=== PATIENT | male | born 1960 | race American Indian/Alaskan Native ===

== ENCOUNTER 2018-08-14 16:30 | Inpatient (IN) | payer MEDICAID, OTHER ==
[2018-08-14 16:30] VITALS: BMI 32.6
[2018-08-14 16:52] VITALS: O2SAT 100
--- NOTE | 2018-08-14 17:25 | C.PDOC ---
History Of Present Illness 57 y/o homeless male presents to the ER from [facility], requesting detox from heroin. Patient states that he snorts heroin and his last use was 2 days ago.Patient reports that he has nausea, body sweats, and body aches. He is "dope sick." He notes that he had suicidal ideation 2 days ago but he did not have plan. He states that he has hx of bipolar disorder and he is intermittently compliant with his medications.Denies having fever,chills, headache, and vomiting. Time Seen by Provider: 08/14/18 16:56 Chief Complaint (Nursing): Substance Abuse History Per: Patient History/Exam Limitations: no limitations Onset/Duration Of Symptoms: Days Current Symptoms Are (Timing): Still Present Severity: Moderate Past Medical History Reviewed: Historical Data, Nursing Documentation, Vital Signs Vital Signs: Last Vital Signs Temp 98.3 F 08/14/18 16:51 Pulse 94 H 08/14/18 16:51 Resp 19 08/14/18 16:51 BP 119/82 08/14/18 16:51 Pulse Ox 100 08/14/18 16:51 Primary Care Provider: FAMILY PROVIDER,NO - Medical History PMH: Asthma, Bipolar Disorder, Depression, HTN (sometimes takes medication), Schizophrenia Denies: Diabetes, Hepatitis, HIV, Chronic Kidney Disease, Seizures, Sexually Transmitted Disease Surgical History: Hernia Repair - [facility] Procedures EXCISION OF ESOPHAGUS, ENDO, DIAGN (08/03/18) EXCISION OF STOMACH, ENDO, DIAGN (08/03/18) MEDICATION MANAGEMENT (08/04/18) SUTURE OF LIP LACERATION (01/03/06) Family History: States: No Known Family Hx - Social History Hx Alcohol Use: No Hx Substance Use: Yes - Immunization History Hx Tetanus Toxoid Vaccination: Yes Hx Influenza Vaccination: Yes Hx Pneumococcal Vaccination: Yes Review Of Systems Except As Marked, All Systems Reviewed And Found Negative. Constitutional: Positive for: Sweats, Malaise. Negative for: Fever, Chills Gastrointestinal: Positive for: Nausea. Negative for: Vomiting, Abdominal Pain Neurological: Negative for: Headache Physical Exam - Physical Exam Appears: No Acute Distress Skin: Normal Color, Warm, Dry Head: Atraumatic, Normacephalic Eye(s): bilateral: Normal Inspection Nose: Normal Oral Mucosa: Moist Neck: Supple Chest: Symmetrical Cardiovascular: Rhythm Regular Respiratory: Normal Breath Sounds, No Rales, No Rhonchi, No Wheezing Gastrointestinal/Abdominal: Normal Exam, Soft, No Tenderness, No Guarding, No Rebound Extremity: Normal ROM Neurological/Psych: Oriented x3, Normal Speech, Other (pt is slow to respond) Gait: Steady ED Course And Treatment - Laboratory Results Result Diagrams: 08/14/18 17:47 08/14/18 17:47 O2 Sat by Pulse Oximetry: 100 (RA) Pulse Ox Interpretation: Normal Medical Decision Making Medical Decision Making: Plan: --Labs --UA --CRISIS Disposition - Disposition Disposition Time: 18:36 Condition: GUARDED Forms: [employer] ([place]rian) - Clinical Impression Clinical Impression: Drug dependence, Bipolar 1 disorder, depressed - Scribe Statement The provider has reviewed the documentation as recorded by the Scribe Sterling López Provider Attestation: All medical record entries made by the Scribe were at my direction and personal ly dictated by me. I have reviewed the chart and agree that the record accurately reflects my personal performance of the history, physical exam, medical decision making, and the department course for this patient. I have also personally directed, reviewed, and agree with the discharge instructions and disposition. Physician Patient Turnover Patient Signed Over To: Rohan Sy Handoff Comments: pending UA/UTox and final dispo by crisis.
[2018-08-14 17:51] LABS: BASO % 0.2 % (0.0-2.0); EOS # 0.3 K/uL (0.0-0.7); EOS % 2.8 % (0.0-4.0); HEMOGLOBIN 9.7 g/dL (12.0-18.0); LYMPH # 2.2 K/uL (1.0-4.3); LYMPH % 21.1 % (20.0-40.0); MEAN CORPUSCULAR HEMOGLOBIN 29.6 pg (27.0-31.0); MEAN CORPUSCULAR HGB CONC 34.8 g/dL (33.0-37.0); MEAN PLATELET VOLUME 7.8 fL (7.2-11.7); MONO % 9.1 % (0.0-10.0); NEUT % 66.8 % (50.0-75.0); NRBC % 0.1 % (0.0-2.0); RBC 3.29 Mil/uL (4.40-5.90); RED CELL DISTRIBUTION WIDTH 15.3 % (11.5-14.5); WHITE BLOOD COUNT 10.5 K/uL (4.8-10.8)
[2018-08-14 18:05] LABS: ALB/GLOB RATIO 1.2 (1.0-2.1); ALBUMIN 3.8 g/dL (3.5-5.0); ALT/SGPT 24 U/L (21-72); AST/SGOT 18 U/L (17-59); BLOOD UREA NITROGEN 21 mg/dL (9-20); CALCIUM 9.3 mg/dl (8.6-10.4); GFR NON-AFRICAN AMERICAN 49
[2018-08-14 18:46] LABS: URINE BILIRUBIN NEGATIVE (NEGATIVE); URINE BLOOD NEGATIVE (NEGATIVE); URINE CLARITY Clear (Clear); URINE COLOR Straw (YELLOW); URINE GLUCOSE (UA) NORMAL (Normal); URINE LEUKOCYTE ESTERASE NEG Leu/uL (Negative); URINE PROTEIN NEGATIVE (NEGATIVE); URINE UROBILINOGEN NORMAL mg/dL (0.2-1.0)
[2018-08-14 19:08] LABS: BARBITURATES, UR NEGATIVE (NEGATIVE); BENZODIAZEPINES, UR NEGATIVE (NEGATIVE); OPIATES, UR NEGATIVE (NEGATIVE); PHENCYCLIDINE, UR NEGATIVE (NEGATIVE)
--- NOTE | 2018-08-14 21:49 | PCM.BM ---
<Ceci Leija - Last Filed: 08/14/18 21:47> Treatment Plan Problems - Problems identified on initial assessmt depression Date Initiated: 08/14/18 Time Initiated: 21:48 Assessment reference: NA Treatment assets and liabiliti Patient Assests: cooperative, motivated, negotiates basic needs, cognitively intact Patient Liabilities: poor support system - Milieu Protocol Maintain good personal hygiene: daily Encourage regular showers, daily Remind patient to perform daily oral care, daily Assist patient to perform ADL's Conduct patient checks and document Observation sheet: Q15 minutes Maintain personal safety: every shift Educate patient to report safety concerns to staff, every shift Monitor environment for contraband/sharps Medication safety: Monitor for expected outcome, potential side effects: every shift, Assess barriers to learning: every shift, Assess readiness for medication education: every shift <Daniela Brown - Last Filed: 08/15/18 14:35> Family Contact Family involvement: Patient does not wish Family/SO involvement Family contact: Patient declines to allow family contact at present - Goals for Treatment Patient goals for treatment: " I want to go to rehab." Discharge/Continuing Care - Education Needs Education Needs: Patient Medication, Patient Diagnosis/Disease Process, Patient Coping Skills, Patient Placement options, Patient Community resources - Discharge Discharge Criteria: Free of Suicidal thoughts, Normal sleep pattern, Ability to care for self, No longer exhibiting s/s of withdrawal, Reduction of target symptoms Discharge to:: Substance Abuse Rehab - Treatment Team Participation Discussed with Family/SO: No Was Patient/Family/SO present at Treatment Team Meeting: Yes <Darcie Gallagher - Last Filed: 08/15/18 20:03> - Diagnosis (1) Bipolar 1 disorder, depressed Status: Acute Interventions: 08/15/18 20:03 * Assess/adjust medications daily and /or as needed * See patient on an individual basis 7x/week to assess level of manic behaviors and stability * Discuss risks, benefits, side effects and alternatives of medications *
--- NOTE | 2018-08-15 09:35 | PCM.PSYCH ---
Initial Psychiatric Evaluation - Initial Psychiatric Evaluation Type of Admission: Voluntary Legal Status: Capacity Chief Complaint (in patient's own words): My mood has been crazy History of Present Illness and Precipitating Events: Patient is a 57 year old single male, unemployed and living in a half-way, who presents to the ED with complaints of depressed mood. Patient has a self reported past psych history of bipolar disorder and presents with complaints of having "crazy mood for the past couple of weeks". He reports that he has been feeling down, hopeless, sleeping excessively, and admits to SI with thoughts of overdosing on drugs; denies plan or prior attempts. He reports he uses heroin(intranasal), 3 bags daily with last use several days ago. Patient reports sweats, chills, abdominal cramps, nausea, vomiting, diarrhea; U DS negative on admission. Patient reports he was previously living with his sister, but left because she kept asking him to contribute to golf starter and ranger which he was unwilling to do, and is currently living in a half-way. Patient admits to previous psych admissions for similar complaints and reports improvement of symptoms with medications, however fails to follow up outpatient and remains non-compliant with meds as instructed. Patient denies recent episode of increased energy, insomnia, racing thoughts. Patient is a poor historian: per records, pt has pmhx of HTN, asthma, and was recently admitted to inpatient psych at [facility] with similar complaints, psychotic during stay with disorganized thoughts and behaviors including smearing feces on nevarez. Transferred to medical floor for evaluation of GI bleed. PsychHx: Bipolar d/o PMHx: denies FamHx: denies Current Medications: Active Medications Generic Name Dose Route Start Last Admin Trade Name Freq PRN Reason Stop Dose Admin Hydroxyzine HCl 25 mg 08/14/18 22:39 Atarax PO Q6 PRN Agitation Trazodone HCl 50 mg 08/14/18 22:40 Desyrel PO HS PRN Insomnia Past Psychiatric History - Past Psychiatric History Previous Treatment History: Inpatient Pertinent Medical Hx (Current Medical&Sleep Prob, Allergies): Allergies Allergy/AdvReac Type Severity Reaction Status Date / Time FISH Allergy ANAPHYLAXIS Verified 08/14/18 16:51 Albuterol/Ipratropium [Duoneb 3 mg/0.5 mg (3 ml) UD] 3 ml IH [id number] neb 08/04/18 LORazepam [Ativan] 1 mg PO TID PRN tab 08/04/18 Metoclopramide [Reglan] 10 mg PO 0600,1130,1630,2200 tab 08/04/18 Nicotine 14 mg/24 hr [Nicoderm CQ] 1 patch TD DAILY patch 08/04/18 Ondansetron ODT [Zofran ODT] 4 mg PO Q8H PRN odt 08/04/18 Pantoprazole [Protonix EC Tab] 40 mg PO 0600,1600 ect 08/04/18 Sucralfate [Carafate Oral Susp] 1 gm PO ACHS udc 08/04/18 risperiDONE [RisperDAL Tab] 0.25 mg PO HS tab 08/04/18 Azithromycin [Z-Tyler] 250 mg PO DAILY #6 tab 08/11/18 Review of Systems - Constitutional Constitutional: Chills, Sweats - Gastrointestinal Gastrointestinal: Cramping, Diarrhea, Nausea, Vomiting - Psychiatric Psychiatric: Anhedonia, Depression, Hopelessness, Mood Swings, Suicidal Ideation. absent: Auditory Hallucinations, Change in Appetite, Visual Hallucinations Mental Status Examination - Personal Presentation Personal Presentation: Looks stated age - Affect Affect: Constricted - Motor Activity Motor Activity: Calm - Reliability in Providing Information Reliability in Providing Information: Poor, due to cognitve impairment - Speech Speech: Organized - Mood Mood: Depressed - Formal Thought Process Formal Thought Process: No Impairment - Cognitive Functions Orientation: Person, Place, Situation, Time Sensorium: Alert Attention/Concentration: Attentive Estimate of Intelligence: Average Judgement: Imparied, as evidence by: Lack of insight into illness Memory: Remote impaired as evidenced by: Inability to recall sig life events - Risk Risk: Suicidal, Diminished functioning - Strength & Assets Inventory Strength & Assets Inventory: Cooperative - Limitations Limitations: Living alone DSM 5 DX - DSM 5 DSM 5 Diagnosis: Bipolar disorder with psychotic features Opioid use disorder, moderate - Recommended/Plan of Treatment Treatment Recommendations and Plan of Treatment: Consider restarting Depakote/Risperdal from previous admission No evidence of withdrawals Atarax, trazodone HS PRN Attend groups and activities Individual therapy daily Psycho-education and support daily Encourage compliance with medications and aftercare Teach healthy lifestyle(diet, exercise, meditation...) Smoking cessation Discussed with Dr. Elliott Shook, PGY-1 32 min - Smoking Cessation Smoking Cessation Initiated: Yes
[2018-08-15] MEDS: Albuterol-Ipratrop 3 mg / 0.5 (3 ml) UD IH SCH (20:52)
[2018-08-15] MEDS ORDERED: traZODone 25 mg Tab PO SCH ×2 (22:00)
[2018-08-15] MEDS: Sucralfate 1 gm/10 ml Oral Susp UD PO SCH (22:50)
[2018-08-16] MEDS: Albuterol-Ipratrop 3 mg / 0.5 (3 ml) UD IH SCH ×5 (02:10→21:01)
[2018-08-16] MEDS: Pantoprazole 40 mg EC Tab PO SCH ×2 (06:24→16:36)
[2018-08-16 06:53] VITALS: RESP 18
[2018-08-16] MEDS: Sucralfate 1 gm/10 ml Oral Susp UD PO SCH ×4 (07:59→22:10)
--- NOTE | 2018-08-16 10:00 | PCM.PYCHPN ---
Psychiatric Progress Note - Psychiatric Progress Note Patient seen today, length of contact: 15 min Patient Chief Complaint: I am hearing voices Problems Identified/Issues Discussed: Patient was seen and evaluated, chart reviewed and discussed with staff. He remained disorganized and preoccupied. He appears to have loose associations and he was found responding to internal stimuli. As per the staff he remained isolative and withdrawn and confined to his room. He reports depressed mood, irritability and agitation. He is taking medication but denies any side effects. he needs to stay longer for the stabilization of the symptoms. Supportive therapy was provided Medication Change: Yes Medical Record Reviewed: Yes Mental Status Examination - Cognitive Function Orientation: Person, Place, Situation, Time Memory: Intact Attention: WNL Concentration: Poor Association: Loose Fund of Knowledge: WNL - Mood Mood: Depressed, Anxious - Affect Affect: Constricted - Formal Thought Process Formal Thought Process: Delusions, Paranoia, Loosening of associations - Suicidal Ideation Suicidal Ideation: No - Homicidal Ideation Homicidal Ideation: No Goal/Treatment Plan - Goal/Treatment Plan Need for Continued Stay: Remain at risks for inpatient hospitalization Progress Toward Problem(s) and Goals/Treatment Plan: Bipolar disorder with psychotic features Opioid use disorder, moderate Carbamazepine for mood Fluphenazine for psychosis Trazodone for insomnia No evidence of withdrawals Hydroxyzine for anxiety Attend groups and activities Individual therapy daily Psycho-education and support daily Encourage compliance with medications and aftercare Teach healthy lifestyle (diet, exercise, meditation...) Smoking cessation
[2018-08-17] MEDS: Albuterol-Ipratrop 3 mg / 0.5 (3 ml) UD IH SCH ×4 (02:06→20:49)
[2018-08-17] MEDS: Pantoprazole 40 mg EC Tab PO SCH ×2 (06:13→16:14)
[2018-08-17] MEDS: Sucralfate 1 gm/10 ml Oral Susp UD PO SCH ×4 (08:29→22:13)
[2018-08-18] MEDS: Albuterol-Ipratrop 3 mg / 0.5 (3 ml) UD IH SCH ×4 (01:06→20:10)
[2018-08-18] MEDS: Pantoprazole 40 mg EC Tab PO SCH ×2 (06:22→16:53)
[2018-08-18] MEDS: Sucralfate 1 gm/10 ml Oral Susp UD PO SCH ×4 (08:12→21:59)
--- NOTE | 2018-08-18 15:38 | PCM.PYCHPN ---
Psychiatric Progress Note - Psychiatric Progress Note Patient seen today, length of contact: 15 min Patient Chief Complaint: I am hearing voices Problems Identified/Issues Discussed: Patient was seen and evaluated, chart reviewed and discussed with staff. As per the staff he remained isolative and withdrawn and confined to his room. He remained disorganized and preoccupied. He appears to have loose associations and he was found responding to internal stimuli. He reports irritability and agitation. He is taking medication but denies any side effects. he needs to stay longer for the stabilization of the symptoms. Supportive therapy was provided Medication Change: Yes Medical Record Reviewed: Yes Mental Status Examination - Cognitive Function Orientation: Person, Place, Situation, Time Memory: Intact Attention: WNL Concentration: Poor Association: Loose Fund of Knowledge: Poor - Mood Mood: Depressed, Anxious - Affect Affect: Constricted - Formal Thought Process Formal Thought Process: Delusions, Paranoia, Loosening of associations - Suicidal Ideation Suicidal Ideation: No - Homicidal Ideation Homicidal Ideation: No Goal/Treatment Plan - Goal/Treatment Plan Need for Continued Stay: Remain at risks for inpatient hospitalization Progress Toward Problem(s) and Goals/Treatment Plan: Bipolar disorder with psychotic features Opioid use disorder, moderate Carbamazepine for mood Fluphenazine for psychosis Trazodone for insomnia No evidence of withdrawals Hydroxyzine for anxiety Attend groups and activities Individual therapy daily Psycho-education and support daily Encourage compliance with medications and aftercare Teach healthy lifestyle (diet, exercise, meditation...) Smoking cessation
--- NOTE | 2018-08-18 16:23 | PCM.PYCHPN ---
Psychiatric Progress Note - Psychiatric Progress Note Patient seen today, length of contact: 15 min Patient Chief Complaint: I am okay. Problems Identified/Issues Discussed: Patient seen, chart reviewed, case discussed with the staff. Issues related to illness and treatment were discussed with the patient and staff. Reported compliant with treatment with no adverse effects. Tolerating treatment very well. Patient reported feeling better. Mood reported as okay. Affect inappropriate, flat affect. Patient needs more time for stabilization. Aftercare discussed with the patient. Denied any delusions, auditory or visual hallucinations, no suicidal ideations or homicidal ideations at the time of evaluation. Medical Problems: None reported Diagnostic Results: Reviewed DSM 5 Symptoms Update: Some improvement with treatment. Medication Change: No Medical Record Reviewed: Yes Mental Status Examination - Cognitive Function Orientation: Person, Place, Situation, Time Memory: Intact Attention: WNL Concentration: WNL Association: WN Fund of Knowledge: [facility] Decription of patient's judgement and insights: Fair - Mood Mood: Depressed - Affect Affect: Depressed - Speech Speech: Appropriate - Formal Thought Process Formal Thought Process: No Impairment Psychotic Thoughts and Behaviors: None reported - Suicidal Ideation Suicidal Ideation: No - Homicidal Ideation Homicidal Ideation: No Goal/Treatment Plan - Goal/Treatment Plan Need for Continued Stay: Remain at risks for inpatient hospitalization, Discharge may exacerbated symptoms, Severe functional impairment Progress Toward Problem(s) and Goals/Treatment Plan: Patient education. Supportive therapy. CBT for relapse prevention. LA for abstinence. Continue treatment as before. Patient [facility] to go [facility] for follow-up care after discharge from the hospital. Estimated Date of D/C: 08/23/18 - Smoking Cessation Smoking Cessation Initiated: Yes
[2018-08-19] MEDS: Pantoprazole 40 mg EC Tab PO SCH ×2 (06:11→16:32)
[2018-08-19] MEDS: Sucralfate 1 gm/10 ml Oral Susp UD PO SCH ×4 (08:00→21:52)
[2018-08-19] MEDS: Albuterol-Ipratrop 3 mg / 0.5 (3 ml) UD IH SCH ×2 (08:52→13:15)
--- NOTE | 2018-08-20 01:20 | PCM.RRT ---
MANAGER CHEMISTRY Nurses Assessment - Situation Date: 08/20/18 Time MANAGER CHEMISTRY was called: 01:02 MANAGER CHEMISTRY Responder Arrival Time:: 01:02 MANAGER CHEMISTRY Location:: [address] [place] [address] Room Number: hallway MANAGER CHEMISTRY Called By: RN - IV IV Inserted during MANAGER CHEMISTRY?: No - Vital Signs Vital Signs: BP 123/75 HR 86 T 98.6 - [place] Coma Scale Coma Scale Eye Opening: Spontaneous Coma Scale Motor: Obeys Commands Movement Coma Scale Verbal: Oriented Coma Scale Total: 15 - Recommendations 5) MANAGER CHEMISTRY Level of Care Recommendations: Remain in current setting I.Reason for MANAGER CHEMISTRY - A) Acute Change in Patient: Subjective: MANAGER CHEMISTRY called by nurse s/p fall in hallway of 5E, code subsequently changed to CODE STAR. Patient reports he was walking back to room from bathroom and slipped on urine in the hallway he was incontinent of on the way there. Patient reports he landed on his back, denies trauma to head. Nursing reports patient was found sitting on floor against wall confirming same events. Patient denies headache, dizziness, blurry vision, nausea, confusion. - Neurological Status (Select all that apply): Alert - Respiratory Oxygen Delivery Method: Room Air - Constitutional Appears: Non-toxic, No Acute Distress - Head Head Exam: ATRAUMATIC, NORMAL INSPECTION, NORMOCEPHALIC - Eyes Eye Exam: EOMI, Normal appearance - Respiratory Exam Respiratory Exam: Clear to Ausculation Bilateral, NORMAL BREATHING PATTERN - Cardiovascular Exam Cardiovascular Exam: REGULAR RHYTHM - GI/Abdominal Exam GI & Abdominal Exam: Soft - Neurological Exam Neurological Exam: Alert, Awake, Normal Gait - Extremities Exam Extremities Exam: Normal Inspection. absent: Calf Tenderness, Pedal Edema Plan - Assessment of Findings&Treatment Plan 57 year old male with MDD; MANAGER CHEMISTRY changed to code star s/p slip and fall in hallway on urine -no trauma to head, gait WNL -Fall precautions -Tylenol once prn back pain Discussed with Dr. Wendy Shook, PGY-1
[2018-08-20] MEDS: Pantoprazole 40 mg EC Tab PO SCH ×2 (06:34→15:43)
[2018-08-20] MEDS: Sucralfate 1 gm/10 ml Oral Susp UD PO SCH ×4 (07:36→21:15)
[2018-08-20] MEDS: Albuterol-Ipratrop 3 mg / 0.5 (3 ml) UD IH SCH ×3 (07:37→20:00)
--- NOTE | 2018-08-20 12:04 | PCM.PYCHPN ---
Psychiatric Progress Note - Psychiatric Progress Note Patient seen today, length of contact: 15 min Patient Chief Complaint: I am hearing voices Problems Identified/Issues Discussed: Patient was seen and evaluated, chart reviewed and discussed with staff. As per the staff he remained isolative and withdrawn and confined to his room. He remained disorganized and preoccupied. He appears to have loose associations and he was found responding to internal stimuli. He reports irritability and agitation. He is taking medication but denies any side effects. he needs to stay longer for the stabilization of the symptoms. Supportive therapy was provided Medication Change: Yes Medical Record Reviewed: Yes Mental Status Examination - Cognitive Function Orientation: Person, Place, Situation, Time Memory: Intact Attention: WNL Concentration: WNL Association: WNL Fund of Knowledge: WNL - Mood Mood: Depressed - Affect Affect: Depressed - Speech Speech: Appropriate - Formal Thought Process Formal Thought Process: No Impairment - Suicidal Ideation Suicidal Ideation: No - Homicidal Ideation Homicidal Ideation: No Goal/Treatment Plan - Goal/Treatment Plan Need for Continued Stay: Remain at risks for inpatient hospitalization, Discharge may exacerbated symptoms, Severe functional impairment Progress Toward Problem(s) and Goals/Treatment Plan: Bipolar disorder with psychotic features Opioid use disorder, moderate Carbamazepine for mood Fluphenazine for psychosis Trazodone for insomnia No evidence of withdrawals Hydroxyzine for anxiety Attend groups and activities Individual therapy daily Psycho-education and support daily Encourage compliance with medications and aftercare Teach healthy lifestyle (diet, exercise, meditation...) Smoking cessation Estimated Date of D/C: 08/23/18
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
[2018-08-21] MEDS: Pantoprazole 40 mg EC Tab PO SCH ×2 (06:48→17:00)
[2018-08-21] MEDS: Sucralfate 1 gm/10 ml Oral Susp UD PO SCH ×4 (07:36→21:04)
[2018-08-21] MEDS: Albuterol-Ipratrop 3 mg / 0.5 (3 ml) UD IH SCH (08:59)
--- NOTE | 2018-08-21 10:16 | PCM.PYCHPN ---
Psychiatric Progress Note - Psychiatric Progress Note Patient seen today, length of contact: 15 min Patient Chief Complaint: I am hearing voices Problems Identified/Issues Discussed: Patient was seen and evaluated, chart reviewed and discussed with staff. As per the staff he remained isolative and withdrawn and confined to his room. He remained disorganized and preoccupied. He appears to have loose associations and he was found responding to internal stimuli. He reports irritability and agitation. He is taking medication but denies any side effects. he needs to stay longer for the stabilization of the symptoms. Supportive therapy was provided Medication Change: Yes Medical Record Reviewed: Yes Mental Status Examination - Cognitive Function Orientation: Person, Place, Situation, Time Memory: Intact Attention: WNL Concentration: Poor Association: Loose Fund of Knowledge: Poor - Mood Mood: Depressed, Anxious - Affect Affect: Constricted, Depressed - Speech Speech: Appropriate - Formal Thought Process Formal Thought Process: No Impairment - Suicidal Ideation Suicidal Ideation: No - Homicidal Ideation Homicidal Ideation: No Goal/Treatment Plan - Goal/Treatment Plan Need for Continued Stay: Remain at risks for inpatient hospitalization, Discharge may exacerbated symptoms, Severe functional impairment Progress Toward Problem(s) and Goals/Treatment Plan: Bipolar disorder with psychotic features Opioid use disorder, moderate Carbamazepine for mood Fluphenazine for psychosis Trazodone for insomnia No evidence of withdrawals Hydroxyzine for anxiety Attend groups and activities Individual therapy daily Psycho-education and support daily Encourage compliance with medications and aftercare Teach healthy lifestyle (diet, exercise, meditation...) Smoking cessation Estimated Date of D/C: 08/23/18
[2018-08-22] MEDS: Pantoprazole 40 mg EC Tab PO SCH ×2 (06:19→15:56)
[2018-08-22] MEDS: Sucralfate 1 gm/10 ml Oral Susp UD PO SCH ×4 (08:30→21:24)
[2018-08-23] MEDS: Pantoprazole 40 mg EC Tab PO SCH ×2 (06:29→16:41)
[2018-08-23] MEDS: Sucralfate 1 gm/10 ml Oral Susp UD PO SCH ×4 (08:05→22:07)
[2018-08-24] MEDS: Pantoprazole 40 mg EC Tab PO SCH (06:08)
[2018-08-24 06:14] VITALS: BP 107/68; PULSE 75; TEMP 98.5
[2018-08-24] MEDS ORDERED: Bacitracin Ointment 30 GM TUBE ONE (07:25)
[2018-08-24] MEDS: Sucralfate 1 gm/10 ml Oral Susp UD PO SCH (08:16)
--- NOTE | 2018-08-24 09:45 | PCM.PYCHDC ---
Mental Status Examination - Mental Status Examination Orientation: Person, Place, Situation, Time Memory: Intact Mood: Neutral Affect: Constricted Speech: Soft Attention: WNL Concentration: WNL Association: WNL Fund of Knowledge: WNL Formal Thought Process: No Impairment Description of patient's judgement and insight: good, fair Psychotic Thoughts and Behaviors: denies any AVH Suicidal Ideation: No Current Homicidal Ideation?: No Discharge Summary - Discharge Note Consultations:: List each consultation separately and include: 1. Reason for request. 2. Findings. 3. Follow-up Summary of Hospital Course include:: 1. Description of specific treatment plan utilized for patients during their course of treatmen. 2. Summarize the time- course for resolution of acute symptoms and/or regressed behaviors. 3. Describe issues identified and worked on during hospitalization. 4. Describe medication utilized. 5. Describe medical problems identified and treated. 6. Reassessment of suicide risk - Diagnosis (1) Bipolar 1 disorder, depressed Current Visit: Yes Status: Acute - Final Diagnosis (DSM 5) Condition upon Discharge: GUARDED DSM 5: Schizoaffective disorder Bipolar type Opioid use disorder, moderate Disposition: HOME/ ROUTINE Follow-up Treatment Plan: Bipolar disorder with psychotic features Opioid use disorder, moderate Carbamazepine for mood Fluphenazine for psychosis Trazodone for insomnia No evidence of withdrawals Hydroxyzine for anxiety Attend groups and activities Individual therapy daily Psycho-education and support daily Encourage compliance with medications and aftercare Teach healthy lifestyle (diet, exercise, meditation...) Smoking cessation Prescriptions/Medication Reconciliation: carBAMazepine [TEGretol-XR] 200 mg PO Q12 #60 ter fluPHENAZine [Prolixin] 10 mg PO BID #60 tab Ibuprofen [Motrin Tab] 600 mg PO BID PRN #60 tab PRN Reason: Pain, Mild (1-3) traZODone [Desyrel] 100 mg PO HS PRN #30 tab PRN Reason: Insomnia - Smoking Cessation Smoking Cessation Medication prescribed: No - Antipsychotic Medications Pt discharged on 2 or more routine antipsychotic medications: No
--- NOTE | 2018-08-24 09:46 | PCM.PYCHPN ---
Psychiatric Progress Note - Psychiatric Progress Note Patient seen today, length of contact: 15 min Patient Chief Complaint: I am hearing voices Problems Identified/Issues Discussed: Patient was seen and evaluated, chart reviewed and discussed with staff. As per the staff he remained isolative and withdrawn and confined to his room. He remained disorganized and preoccupied. He appears to have loose associations and he was found responding to internal stimuli. He reports irritability and agitation. He is taking medication but denies any side effects. he needs to stay longer for the stabilization of the symptoms. Supportive therapy was provided Medication Change: Yes Medical Record Reviewed: Yes Mental Status Examination - Cognitive Function Orientation: Person, Place, Situation, Time Memory: Intact Attention: WNL Concentration: WNL Association: WNL Fund of Knowledge: [facility] Decription of patient's judgement and insights: good, fair - Mood Mood: Neutral - Affect Affect: Constricted - Speech Speech: Soft - Formal Thought Process Formal Thought Process: No Impairment Psychotic Thoughts and Behaviors: denies any AVH - Suicidal Ideation Suicidal Ideation: No - Homicidal Ideation Homicidal Ideation: No Goal/Treatment Plan - Goal/Treatment Plan Need for Continued Stay: Remain at risks for inpatient hospitalization, Discharge may exacerbated symptoms, Severe functional impairment Progress Toward Problem(s) and Goals/Treatment Plan: Bipolar disorder with psychotic features Opioid use disorder, moderate Carbamazepine for mood Fluphenazine for psychosis Trazodone for insomnia No evidence of withdrawals Hydroxyzine for anxiety Attend groups and activities Individual therapy daily Psycho-education and support daily Encourage compliance with medications and aftercare Teach healthy lifestyle (diet, exercise, meditation...) Smoking cessation Estimated Date of D/C: 08/23/18
== END 2018-08-24 10:37 | disposition home or self-care (01) | DRG 753 ==
LOC: C.ER 16:30 → C.5E 21:14
PROVIDERS: ADMIT Psychiatry & Neurology Psychiatry; ATTEND Psychiatry & Neurology Psychiatry
PROC: GZ56ZZZ Individual Psychotherapy, Supportive (ICD-10-PCS; principal; 2018-08-14)
DX: F31.5 Bipolar disorder, current episode depressed, severe, with psychotic features (principal); R45.851 Suicidal ideations; I10 Essential (primary) hypertension; G47.00 Insomnia, unspecified; J45.909 Unspecified asthma, uncomplicated; Z59.0 Homelessness; F11.10 Opioid abuse, uncomplicated; F41.9 Anxiety disorder, unspecified